=== PATIENT | female | born 1970 | race Caucasian/White ===

== ENCOUNTER 2017-10-27 08:51 | Outpatient (CLI) | payer MEDICAID ==
[~2017-10-27] VITALS: Ht 154.9 cm; Wt 122.7 kg
--- NOTE | ~2017-10-27 | OP ---
PATIENT NAME: CORINA MACHADO MEDICAL RECORD: [id number] :74 LOCATION:D.CAT ADMISSION DATE: SURGEON: RADHA MAIER MD DATE OF OPERATION: 10/27/2017 PROCEDURES: 1. Left heart catheterization. 2. Selective coronary angiography. 3. Left ventriculogram. INDICATION: Chest pain compatible with angina. PROCEDURE IN DETAIL: After informed consent was obtained and after a detailed description of risks, benefits as well as alternative therapies, the patient elected to proceed with angiogram and angioplasty. The right femoral area was prepped and draped in normal sterile fashion. Right femoral artery was cannulated via modified Seldinger technique with placement of 6-Thai sheath. All catheters exchanged through this sheath. FINDINGS: Left ventriculogram was performed in standard 30-degree GUILLEN view, reveals good cardiac wall motion throughout all segments. Overall ejection fraction estimated to 60%. SELECTIVE CORONARY ANGIOGRAPHY: Left main, left anterior descending, left circumflex, right coronary artery are all smooth-walled vessels with no angiographic evidence of coronary artery disease. OVERALL IMPRESSION: 1. No angiographic evidence of coronary artery disease. 2. Normal left heart pressures. 3. Normal left ventricular systolic function. Chest pain is noncardiac in etiology. No further cardiac workup needs to be ascertained. TRANSINT:[id number] Voice Confirmation ID: [id number] DOCUMENT ID: [id number] RDAHA MAIER MD at 1843 CC: [id number] DICTATION DATE: 10/27/17 1340 WARP DRESSER: 10/27/17 1344 [facility] [address] [place] [address]
--- NOTE | ~2017-10-27 | HEMODYNAMI ---
PATIENT:CORINA MACHADO MEDICAL RECORD: [id number] : 74 LOCATION:DBlueCAT ADMISSION DATE: 10/27/17 Generatedon:10/27/201713:41 Patient name: CORINA MACHADO Patient #: [id number] SSN: : 1970 Date of study: 10/27/2017 Page: Of Hemodynamic Procedure Report Patient Data Patient Demographics Procedure consent was obtained First Name: CORINA Gender: Female Last Name: JEANNETTE : 1970 [facility] Initial: E Age: 47 year(s) Patient #: [id number] Race: Additional ID: [id number] Contact details Address: [address] [place] [address] State: [place] City: [place] Zip code: [address] Past Medical History History of disease Date Diagnosis Comments Hypertension Allergies Allergen Reaction Date Comments Reported Other allergy 10/27/2017 wellbutrin Admission Admission Data Admission Date: 10/27/2017 Admission Time: 8:51 Admit Source: Other Lab Results Lab Result Date: 10/27/2017 Lab Result Time: 10:05 Biochemistry Name Units Result Min Max BUN mg/dl 12 --(-*--)-- 7 18 Creatinine mg/dl 0.7 --(*---)-- 0.6 1.3 CBC Name Units Result Min Max Hematocrit % 38.5 *-(----)-- 42 54 Hemoglobin g/dl 12.7 -*(----)-- 13.5 17.5 Procedure Procedure Types Cath Procedure Diagnostic Procedure LHC LHC w/Coronaries Sedation Charges Moderate Sedation up to 15 minutes Procedure Description Procedure Date Procedure Date: 10/27/2017 Procedure Start Time: 13:22 Procedure End Time: 13:39 Procedure Staff Name Function Gilberto Alvarado MD Performing Physician Anish Ennis RT Monitor Betty Forrest RN Nurse Connor Alba RT Scrub Francisco Kay RT Hand Tier Procedure Data Cath Procedure Fluoroscopy Diagnostic fluoroscopy Total fluoroscopy Time: 0.5 time: 0.5 min min Contrast Material Contrast Material Type Amount (ml) Isovue 300 37 Entry Location Entry Primary Successful Side Size Upsize Upsize Entry Closure Succes sful Closure Location (Fr) 1 (Fr) 2 (Fr) Remarks Device Remarks Femoral Right 5 Fr Exoseal artery Estimated blood loss: 5 ml Diagnostic catheters Device Type Used For End Catheter Placement MULTIPACK Pigtail 5 Fr Procedure catheter MULTIPACK JL 4.0 5Fr Procedure catheter MULTIPACK 3DRC 5Fr Procedure catheter Procedure Complications No complications Procedure Medications Medication Administration Route Dosage Oxygen etCO2 Nasal cannula 2 l/min Lidocaine 2% added to field 20 Heparin Flush Bag added to field 2 bags (1000units/500ml NS) 0.9% NaCl I.V. 100 ml/hr Zofran I.V. 4 mg Versed I.V. 2 mg Fentanyl I.V. 100 mcg Versed I.V. 2 mg Fentanyl I.V. 100 mcg Fentanyl I.V. 100 mcg Radial Cocktail added to field 1 syringe (Verapomil 2mg/Nitro 400mcg/Heparin 1500units) Versed I.V. 1 mg Hemodynamics Rest HGB: 12.7 (g/dl) Heart Rate: 65 (bpm) Pressure Samples Time Site Value (mmHg) Purpose Heart Use Rate(bpm) 13:34 LV 149/33,63 Snapshot 83 Snapshots Pre Cath Intra NCS Post Cath Vital Signs Time Heart Resp SPO2 etCO2 NIBP (mmHg) Rhythm Pain Sedation Rate (ipm) (%) (mmHg) Status Level (bpm) 12:41:39 63 13 100 37.5 174/93(136) NSR 0 (11) 10(A) , No pain 12:46:30 65 19 100 32.3 152/88(105) NSR 0 (11) 10(A) , No pain 12:51:28 69 19 100 29.2 Measuring NSR 0 (11) 10(A) , No pain 12:52:30 67 10 100 29.2 168/89(132) NSR 0 (11) 10(A) , No pain 12:57:09 68 17 100 36.8 157/97(152) NSR 0 (11) 10(A) , No pain 13:01:49 67 10 100 38.3 154/87(131) NSR 0 (11) 10(A) , No pain 13:06:25 61 18 100 41.2 167/95(111) NSR 0 (11) 10(A) , No pain 13:11:06 75 17 100 28.5 145/89(132) NSR 0 (11) 10(A) , No pain 13:15:34 62 15 100 39 149/83(124) NSR 0 (11) 10(A) , No pain 13:20:15 72 17 97 40.5 151/86(126) NSR 0 (11) 10(A) , No pain 13:24:37 60 16 93 39.7 141/104(132) NSR 0 (11) 9(A) , No pain 13:30:42 81 14 94 46.5 152/112(144) NSR 0 (11) 9(A) , No pain 13:36:18 72 16 98 42.7 164/100(138) NSR 0 (11) 10(A) , No pain Medications Time Medication Route Dose Verified Delivered Reason Notes Effectiveness by by 12:44:11 Oxygen etCO2 2 l/min Gilberto Martelie used for Nasal Christiano Forrest RN procedure cannula 12:44:19 Lidocaine 2% added 20ml Gilberto Buffie used for to vial Christiano Forrest RN procedure field 12:44:26 Heparin Flush added 2 bags Gilberto Buffie used for Bag to Christiano Forrest RN procedure (1000units/500ml field NS) 12:44:35 0.9% NaCl I.V. 100 Gilberto Hernández Per ml/hr Christiano Forrest RN physician 12:58:12 Zofran I.V. 4 mg Gilberto Hernández Per pt states Christiano Forrest RN physician n/v with anesthesia 13:15:04 Versed I.V. 2 mg Gilberto Hernández for Christiano Forrest RN sedation 13:15:11 Fentanyl I.V. 100 mcg Gilberto Hernández for Christiano Forrest RN sedation 13:22:10 Versed I.V. 2 mg Gilberto Hernández for Christiano Forrest RN sedation 13:22:15 Fentanyl I.V. 100 mcg Gilberto Hernández for Christiano Forrest RN sedation 13:26:23 Fentanyl I.V. 100 mcg Gilberto Hernández for Christiano Forrest RN sedation 13:27:30 Radial Cocktail added 1 Gilberto Macias wasted, n o (Verapomil to syringe Christiano Alvarado MD radial 2mg/Nitro field obtained. 400mcg/Heparin 1500units) 13:30:46 Versed I.V. 1 mg Gilberto Macias for Christiano Alvarado MD sedation Procedure Log Time Note 11:51:40 Informed consent obtained and on chart 11:51:43 Admit Source: Other 11:52:12 Diagnostic Cath status Elective 11:52:14 Time tracking: Regular hours (M-F 7:00 - 5:00) 11:52:18 Plan of Care:Hemodynamics will remain stable., Cardiac rhythm will remain stable., Comfort level will be maintained., Respiratory function will remain adequate., Patient/ family verbilizes understanding of procedure., Procedure tolerated without complication., Recovers from procedure without complications.. 11:52:34 H&P Date Dictated: 10/24/2017 Within 30 days and on chart., H&P Addendum completed by physician on day of procedure. (MUST COMPLETE FOR ALL OUTPATIENTS). 12:15:48 Francisco Kay RT(R) sent for patient. Start room use. 12:30:57 Patient received from Pre/Post Procedure Room to CCL 3 Alert and oriented. Tansferred to table in Supine position. 12:30:58 Warm blankets applied, and eden hugger turned on for patient comfort. 12:30:58 Correct patient and procedure confirmed by team. 12:30:59 ECG and BP/O2 sat monitors applied to patient. 12:31:00 Pre-procedure instructions explained to patient. 12:31:00 Pre-op teaching completed and patient verbalized understanding. 12:31:01 Family in waiting room. 12:31:03 Patient NPO since Midnight. 12:31:33 Patient allergic to Other allergywellbutrin 12:40:02 Vital chart was started 12:43:53 Baseline sample Acquired. 12:43:55 Rhythm: sinus rhythm 12:43:57 Full Disclosure recording started 12:44:00 Is the patient allergic to Iodine/contrast media? No. 12:44:01 Is patient on blood thinner?No 12:44:02 Patient diabetic? Yes. 12:44:03 If diabetic: On Metformin? Yes 12:44:05 If on Metformin: Last Dose? 10/25/2017 12:44:11 Oxygen 2 l/min etCO2 Nasal cannula was administered by Betty Forrest RN; used for procedure; 12:44:13 Patient not . Patient has had hysterectomy. 12:44:15 Previous problem with sedation/anesthesia? No ? 12:44:19 Lidocaine 2% 20ml vial added to field was administered by Betty Forrest RN; used for procedure; 12:44:19 Snore? Yes 12:44:19 Sleep apnea? No 12:44:20 Deviated septum? No 12:44:21 Opens mouth fully? Yes 12:44:22 Sticks out tongue? Yes 12:44:24 Airway obstruction? No ? 12:44:26 Heparin Flush Bag (1000units/500ml NS) 2 bags added to field was administered by Betty Forrest RN; used for procedure; 12:44:31 Dentures? Yes in tight 12:44:35 0.9% NaCl 100 ml/hr I.V. was administered by Betty Forrest RN; Per physician; 12:44:35 Modified Alessandro's test Ulnar < 7 seconds 12:44:39 Patient pain scale 0/10 ?. 12:44:50 IV patent on arrival in right antecubital with 0.9% NaCl at [facility]. 12:45:24 Lab Result : BUN 12 mg/dl 12:45:24 Lab Result : Hemoglobin 12.7 g/dl 12:45:24 Lab Result : Creatinine 0.7 mg/dl 12:45:24 Lab Result : Hematocrit 38.5 % 12:45:27 Lab results completed and on chart. 12:45:30 Right Radial & Right Groin area was prepped with chlora-prep and draped in sterile fashion 12:45:31 Alarms reviewed by R. N. 12:45:31 Sharps counted by scrub and verified by R.N. 12:45:33 Use device set Radial Dx or PCI 12:45:34 ACIST Syringe (67159) opened to sterile field. 12:45:35 Medline Cath Pack ([id number]) opened to sterile field. 12:45:36 ACIST Hand Control (92288) opened to sterile field. 12:45:36 ACIST Manifold (51560) opened to sterile field. 12:45:37 Tegaderm 4 x 4 (1626W) opened to sterile field. 12:45:38 MBrace Wrist Support ([id number]) opened to sterile field. 12:45:38 SHEATH 6Fr Prelude Radial ([id number]) opened to sterile field. 12:45:39 Bag Decanter (2001S) opened to sterile field. 12:45:40 DIAGNOSTIC WIRE .035 260cm J wire (830447) opened to sterile field. 12:58:12 Zofran 4 mg I.V. was administered by Betty Forrest RN; Per physician; pt states n/v with anesthesia 13:08:21 Zero performed for pressure channel P1 13:12:40 Physician arrived 13:12:40 --------ALL STOP TIME OUT------ 13:12:41 Final Timeout: patient, procedure, and site verified with staff and physician. All members of the team are in agreement. 13:12:42 Right Radial & Right Groin site verified by team. 13:12:49 Physical assessment completed. ASA score P 2 - A patient with mild systemic disease as per Gilberto Alvarado MD. 13:12:52 Sedation plan: IV Moderate Sedation Medication:Versed, Fentanyl 13:15:04 Versed 2 mg I.V. was administered by Betty Forrest RN; for sedation; 13:15:11 Fentanyl 100 mcg I.V. was administered by Betty Forrest RN; for sedation; 13:22:10 Versed 2 mg I.V. was administered by Betty Forrest RN; for sedation; 13:22:15 Fentanyl 100 mcg I.V. was administered by Betty Forrest RN; for sedation; 13:22:19 Procedure started. 13:22:23 Local anesthetic to right radial artery with Lidocaine 2% by Gilbreto Alvarado MD.INITIAL ACCESS ONLY 13:26:23 Fentanyl 100 mcg I.V. was administered by Betty Forrest RN; for sedation; 13:27:30 Radial Cocktail (Verapomil 2mg/Nitro 400mcg/Heparin 1500units) 1 syringe added to field was administered by Gilberto Alvarado MD; ; wasted, no radial obtained. 13:28:47 Unable to gain radial access. Moving to femoral approach. 13:28:50 Local anesthetic to right femoral artery with Lidocaine 2% by Gilberto Alvarado MD.ADDITIONAL ACCESS 13:29:14 Use device set Multipack Set 13:29:17 DIAGNOSTIC Multipack 5Fr catheter set ([id number]) opened to sterile field. 13:29:25 SHEATH 5FR [place] (HGV965) opened to sterile field. 13:30:46 Versed 1 mg I.V. was administered by Gilberto Alvarado MD; for sedation; 13:32:45 A 5 Fr sheath was inserted into the Right Femoral artery 13:33:10 A MULTIPACK Pigtail 5 Fr catheter was advanced over the wire and used for Procedure. 13:34:34 LV gram done using GUILLEN 13:34:36 Injector settings: Ml/sec: 10, Volume: 20, 13:34:38 LV hemodynamics recorded. 13:34:42 EF : 55 % 13:34:42 Catheter exchanged over wire. 13:34:48 A MULTIPACK JL 4.0 5Fr catheter was advanced over the wire and used for Procedure. 13:35:36 LCA angiography performed. 13:35:39 Catheter exchanged over wire. 13:35:49 A MULTIPACK 3DRC 5Fr catheter was advanced over the wire and used for Procedure. 13:36:11 RCA angiography performed. 13:36:24 Catheter removed. 13:36:30 EXOSEAL 5Fr (EX500) opened to sterile field. 13:36:39 Sheath removed intact; hemostasis achieved with Exoseal to the Right Femoral artery. 13:36:40 Procedure ended.(Physican Out) 13:37:50 Fluoroscopy time 00.50 minutes. 13:38:11 Contrast amount:Isovue 300 37ml. 13:38:13 Sharps counted by scrub and verified by R.N. 13:38:18 Insertion/operative site no bleeding no hematoma. 13:38:21 Post-op/insertion site Right Femoral artery dressed using a 4 x 4 and Tegaderm. 13:38:25 Post right femoral artery:stable, soft, clean and dry 13:38:27 Post Procedure Pulses reassessed and unchanged 13:38:29 Post-procedure physical assessment completed. ASA score P 2 - A patient with mild systemic disease as per Gilberto Alvarado MD. 13:38:31 Post procedure rhythm: unchanged. 13:38:35 Estimated blood loss: 5 ml 13:38:36 Post procedure instruction explained to patient.Patient verbalizes understanding. 13:38:45 Post-op/insertion site Right Radial artery dressed using a Bandaid. 13:38:59 Procedure type changed to Cath procedure, Diagnostic procedure, LHC, LHC w/Coronaries, Sedation Charges, Moderate Sedation up to 15 minutes 13:39:17 Procedure and supply charges have been captured, reviewed, submitted and are correct. 13:39:19 Procedure Complication : No complications 13:39:22 Vital chart was stopped 13:39:23 See physician's report for complete and final results. 13:39:25 Report given to Pre/Post Procedure Room. 13:39:28 Patient transfered to Pre/Post Procedure Room with Stretcher. 13:39:31 Procedure ended. 13:39:31 Full Disclosure recording stopped 13:39:35 End room use (Document Last) Device Usage Item Name Manufacture Quantity Catalog Number Hospital Part Current M inimal Lot# / Charge Number Stock Stock Serial# Code ACIST Syringe Acist 1 [id number] [id number] 035668 892499 2 0 (78441) [employer] Medline Cath Cardinal 1 [id number] 262145 64018 418861 5 Pack Health ([id number]) ACIST Hand Acist 1 90712 291393 455896 542228 5 Control (01355) [employer] Inc ACIST Manifold Acist 1 80524 734889 348685 208111 5 (09630) [employer] Inc Tegaderm 4 x 4 3M 1 1626W 621216 034478 203387 5 (1626W) MBrace Wrist Advanced 1 140-0250-00 207461 79298 175993 5 Support Vascular ([id number]) Dynamics SHEATH 6Fr Merit 1 [id number] 495525 139472 818489 5 Prelude Radial Medical ([id number]) Bag Decanter Microtek 1 2001S 073968 60245 726351 5 (2001S) Medical Inc. DIAGNOSTIC WIRE [facility] 1 156333 573789 757702 478501 3 0 .035 260cm J wire (862466) DIAGNOSTIC Cardinal 1 [id number] 572525 60211 075421 3 0 Multipack 5Fr Health catheter set (HT5433) SHEATH 5FR Terumo 1 [id number] 552492 606602 645543 4 0 [place] (RQI525) MULTIPACK Cardinal 1 143047 5 Pigtail 5 Fr Health catheter MULTIPACK JL Cardinal 1 233924 5 4.0 5Fr Health catheter MULTIPACK 3DRC Cardinal 1 [id number] 5 5Fr catheter Health EXOSEAL 5Fr Cardinal 1 EX500 101988 102028 660131 1 0 (EX500) Health Signature Audit [place] Stage Time Signature Unsigned Intra-Procedure 10/27/2017 Anish Ennis 1:41:19 PM RT(R) Signatures Monitor : Anish Ennis RT Signature : Date : Time : [address] [place] [address]
[~2017-10-27 08:51] MED LIST: ALDACTONE25 MG PO; ARMOUR THYROID240 MG PO; BAYER CHEWABLE81 MG PO; EFFIENT10 MG PO; ESTRACE2 MG PO; LASIX40 MG PO; LEXAPRO10 MG PO; PLAVIX75 MG PO; PROTONIX40 MG PO; RYBIX ODT50 MG PO; SYNTHROID50 MCG PO; TOPAMAX50 MG PO; VITAMIN B-1250 MCG PO; ZANAFLEX4 MG PO; ZYRTEC10 MG PO
[2017-10-27] MEDS ORDERED: GLUCOPHAGE500 MG PO (09:56)
[2017-10-27] MEDS ORDERED: LEVOTHYROXINE175 MCG PO (09:56)
[2017-10-27] MEDS ORDERED: PROZAC40 MG PO (09:57)
[2017-10-27 10:03] VITALS: BP 136/83; Ht 154.9 cm; Wt 122.7 kg
[2017-10-27] MEDS ORDERED: TENORMIN50 MG PO (10:06)
[2017-10-27 10:33] LABS: BASOPHILS 0.3 % (0-2); CALC OSMOLALITY 278 mosm/kg (275-300); CALCIUM 8.2 mg/dL (8.5-10.1); CARBON DIOXIDE 29.8 mmol/L (21.0-32.0); CHLORIDE - SERUM 103 mmol/L (98-107); CREATININE - SERUM 0.7 mg/dL (0.6-1.3); EOSINOPHILS 1.6 % (0-7); GLUCOSE 93 mg/dL (74-106); HEMATOCRIT 38.5 % (36.0-48.0); HEMOGLOBIN 12.7 g/dL (12-16); IMMATURE GRANULOCYTES 0.1 % (0-5); LYMPHOCYTES 32.9 % (15-50); MCH 30.2 pg (26.0-34.0); MCV 91.7 fL (80.0-100.0); MEAN PLATELET VOLUME 9.9 fL (7.4-10.4); MONOCYTES 7.2 % (2-11); NEUTROPHILS 57.9 % (40-80); PLATELET COUNT 239 10x3/uL (130-400); RDW 12.9 % (11.5-14.5); SODIUM 140 mmol/L (136-145); UREA NITROGEN 12 mg/dL (7-18); WBC 7.6 10x3/uL (4.8-10.8); eGFR NON AFRICAN AMERICAN > 90 mL/min (90-120)
== END 2017-10-27 15:50 | disposition home or self-care (01) ==
LOC: D.CATH 08:51
PROVIDERS: Internal Medicine Interventional Cardiology
DX: R07.89 Other chest pain (principal); Z01.812 Encounter for preprocedural laboratory examination